=== PATIENT | female | born 1930 | race Caucasian/White ===

== ENCOUNTER 2017-07-19 14:02 | Outpatient (CLI) | payer MEDICARE, BC ==
[2017-07-19 15:15] LABS: Hemoglobin 10.9 g/dL (12.0-16.0); Mean Corpuscular Hemoglobin 30.8 pg (27.0-31.0); Mean Corpuscular Volume 93.3 fl (81.0-99.0); Mean Platelet Volume 8.9 fL (7.4-10.4); Platelet Count 228 thou/uL (130-400); RBC Distribution Width 13.9 % (11.5-14.5); Red Blood Cell (RBC) Count 3.53 mill/uL (4.20-5.40); White Blood Cell (WBC) Count 5.1 thou/uL (4.8-10.8)
[2017-07-19 15:37] LABS: Anion Gap 14 mmol/L (10-20); BUN (Urea Nitrogen) 27 mg/dL (9.8-20.1); Calc. Creatinine Clearance 0 mL/min (70-130); Calcium 9.6 mg/dL (7.8-10.44); Carbon Dioxide 24 mmol/L (23-31); Chloride 104 mmol/L (98-107); Estimated GFR-MDRD 47; Glucose 105 mg/dL (83-110); Potassium 4.5 mmol/L (3.5-5.1); Sodium 137 mmol/L (136-145)
== END 2017-07-19 14:03 | disposition home or self-care (01) ==
LOC: LABBT 14:02
PROVIDERS: ATTEND Orthopaedic Surgery
DX: Z01.812 Encounter for preprocedural laboratory examination (principal); M67.442 Ganglion, left hand
CPT/HCPCS: 80048; 85027

== ENCOUNTER 2017-07-23 05:53 | Day surgery (SDC) | payer MEDICARE, BC ==
[2017-07-19 14:20] VITALS: BMI 22.6
[2017-07-23] MEDS ORDERED: Lidocaine 1% w/Epinephrine 1:200K 30 ML VIAL ONE (06:39)
[2017-07-23] MEDS ORDERED: Clindamycin/D5W 600 mg/50 ml Premix Bag ONE (06:41)
[2017-07-23] MEDS ORDERED: Ondansetron HCl/PF 4 MG/2 ML Vial ONE ×2 (09:29→14:03)
[2017-07-23] MEDS ORDERED: ePHEDrine/0.9% NaCl/PF SYRINGE 50 mg/10 ml ONE ×2 (09:29→14:03)
[2017-07-23] MEDS ORDERED: Diprivan 20 ML ONE (09:29)
--- NOTE | 2017-07-23 12:23 | OP ---
PREOPERATIVE DIAGNOSIS: Ganglion cyst, left wrist. POSTOPERATIVE DIAGNOSIS: Ganglion cyst, left wrist. SURGEON: Bon Amador M.D. ANESTHESIA: General. BLOOD LOSS: About 25 mL. SPECIMENS: None. DRAINS: None. COMPLICATIONS: None. PROCEDURE IN DETAIL: The patient was taken to the operative suite where general anesthesia was induc ed. The left wrist was anesthetized with lidocaine with epinephrine as well. I opened up the old sc ar and extended proximally and distally to get a healthy tissue. I did a careful tedious dissection of the ganglion cyst. I tracked down to the joint and excised it from the joint and bovied the bed o f the donor site of the ganglion cyst to try and prevent recurrence. Tourniquet released. Hemostasi s was obtained. Irrigation performed. Skin was closed with 4-0 Vicryl and 3-0 Prolene and sterile d ressings applied.
[2017-07-23] MEDS ORDERED: Lidocaine 1% PF 5 ML VIAL ONE (14:03)
[2017-07-23] MEDS ORDERED: Propofol 200 MG/20 ML VIAL ONE (14:03)
--- NOTE | 2017-07-25 09:23 | EKG ---
Test Reason : PREOP Blood Pressure : / mmHG Vent. Rate : 064 BPM Atrial Rate : 064 BPM P-R Int : 162 ms QRS Dur : 146 ms QT Int : 474 ms P-R-T Axes : 057 -27 158 degrees QTc Int : 489 ms Normal sinus rhythm Possible Left atrial enlargement Left bundle branch block Abnormal ECG When compared with ECG of 17-JUN-2016 13:37, No significant change was found Confirmed by DIANELYS PAREDES ([id number]) on 07/25/2017 9:22:36 AM Referred By: DESTINY Confirmed By:DIANELYS PAREDES
== END 2017-07-23 09:58 | disposition home or self-care (01) ==
LOC: SDC 05:53
PROVIDERS: ATTEND Orthopaedic Surgery
PROC: 0LB60ZZ Excision of Left Lower Arm and Wrist Tendon, Open Approach (ICD-10-PCS; principal; 2017-07-23)
DX: M67.432 Ganglion, left wrist (principal); I10 Essential (primary) hypertension; E78.00 Pure hypercholesterolemia, unspecified; Z79.02 Long term (current) use of antithrombotics/antiplatelets; Z79.82 Long term (current) use of aspirin; Z79.52 Long term (current) use of systemic steroids; Z79.899 Other long term (current) drug therapy; Z88.5 Allergy status to narcotic agent; Z88.0 Allergy status to penicillin; Z95.1 Presence of aortocoronary bypass graft; Z90.710 Acquired absence of both cervix and uterus; Z98.890 Other specified postprocedural states; Z87.891 Personal history of nicotine dependence
CPT/HCPCS: 93005; 93010; J2001; J2405; J2704; J3490

== ENCOUNTER 2017-08-09 10:07 | Outpatient (CLI) | payer MEDICARE, BC ==
[2017-08-09 11:17] LABS: Hemoglobin 10.5 g/dL (12.0-16.0); Mean Corpuscular HGB CONC 32.4 g/dL (32.0-36.0); Mean Corpuscular Hemoglobin 31.1 pg (27.0-31.0); Mean Corpuscular Volume 95.9 fl (81.0-99.0); Mean Platelet Volume 8.6 fL (7.4-10.4); Platelet Count 216 thou/uL (130-400); RBC Distribution Width 13.8 % (11.5-14.5); Red Blood Cell (RBC) Count 3.38 mill/uL (4.20-5.40); White Blood Cell (WBC) Count 5.5 thou/uL (4.8-10.8)
[2017-08-09 11:41] LABS: Anion Gap 10 mmol/L (10-20); BUN (Urea Nitrogen) 31 mg/dL (9.8-20.1); Calc. Creatinine Clearance 0 mL/min (70-130); Calcium 9.8 mg/dL (7.8-10.44); Carbon Dioxide 28 mmol/L (23-31); Chloride 106 mmol/L (98-107); Estimated GFR-MDRD 49; Glucose 93 mg/dL (83-110); Potassium 4.3 mmol/L (3.5-5.1); Sodium 140 mmol/L (136-145)
== END 2017-08-09 10:08 | disposition home or self-care (01) ==
LOC: LABBT 10:07
PROVIDERS: ATTEND Surgery
DX: Z01.818 Encounter for other preprocedural examination (principal); I25.810 Atherosclerosis of coronary artery bypass graft(s) without angina pectoris; Z95.1 Presence of aortocoronary bypass graft
CPT/HCPCS: 80048; 85027

== ENCOUNTER 2017-08-10 07:08 | Day surgery (SDC) | payer MEDICARE, BC ==
[2017-08-09 10:48] VITALS: BMI 25.7
[2017-08-10] MEDS ORDERED: Lidocaine 1% (PF) 30 ML VIAL ONE (09:17)
[2017-08-10] MEDS ORDERED: Heparin 10,000 UNITS/1 ML VIAL ONE (10:43)
[2017-08-10] MEDS ORDERED: Nitroglycerin 100MG/250ML BOT 250 ML ONE (10:48)
--- NOTE | 2017-08-10 15:48 | DIS ---
HOSPITAL COURSE: She was seen as an outpatient for procedure and will be discharged on the same day. Her diagnosis was coronary artery disease. She had a cardiac catheterization last week which showed significant instent restenosis of the left anterior descending artery with a failed ARBOLEDA graft to left anterior descending artery. She was advised and continuation of severe stenosis of the left anterior descending artery. She was advised to undergo repeat angioplasty and stent placement to the left anterior descending artery. Given her age of [age] years old, it was high risk for redo surgery, her other bypass graft has remained patent. She was taken to cardiac catheterization lab today where she underwent the procedure, other diagnoses includes dyslipidemia, hypertension, history of tobacco abuse in the past, but stopped many years ago, history of chronic back pain, history of irritable bowel disease, hypertension, coronary artery bypass grafting in 2008 with bypasses to the left anterior descending artery, diagonal branch, obtuse marginal branch. She has a history of rheumatoid arthritis, TMJ. She has had a rotator cuff repair. She had partial hysterectomy and laminectomy. She has had bilateral cataract surgery. DISCHARGE MEDICATIONS: Same as her admission medications. These include Restasis ophthalmic drops, Xeljanz 5 mg b.i.d., Xanax 0.5 mg t.i.d. p.r.n., Lyrica 50 mg b.i.d., aspirin 81 mg daily, Plavix 75 mg daily, potassium ER 10 mEq daily, Norvasc 2.5 mg a half a tablet in the morning and 1 tablet in the evening, Nucynta 1 tablet every 8 hours as needed, Zetia 1 tablet daily 10 mg, furosemide 20 mg daily, rosuvastatin 10 mg daily, Coreg 12.5 mg 1 tablet b.i.d. , potassium 10 mEq 1 tablet daily when she takes the Lasix, and nitroglycerin 0.4 mg sublingual tablets p.r.n. Her followup will be with me in about 2-4 weeks in the office. She will continue her routine followups with Dr. Shawn Hitchcock, her primary doctor. She will follow up with him on a routine basis and I will see her back in the office in the next 1-2 months. PROCEDURES IN HOSPITAL: Included cardiac catheterization with only visualization of the left coronary system with angioplasty and stent placement to the left anterior descending artery which was successful. HOSPITAL COURSE: This is a very pleasant 87-year-old female underwent angioplasty and stent placement to the left anterior descending artery in the past. She also had bypass surgery and then recently had developed unstable angina. She was seen and underwent cardiac catheterization and was found to have severe stenosis of the left anterior descending artery with a failed ARBOLEDA to the left anterior descending artery. Today, she underwent angioplasty and stent placement to the left anterior descending artery which was heavily calcified, but we were able to pass the stent. She was implanted with a 2.5 x 38 mm drug-coated stent in the proximal to almost the distal area, the entire midsection of the left anterior descending artery was stented up to 2.5 mm in diameter. The midsection was dilated up to 2.54 mm. There was no evidence of significant residual stenosis. The patient tolerated the procedure well. At the end of procedure, there was no evidence of dissection or limitation of flow. During the procedure, she was not given any conscious sedation. She remained stable throughout the procedure and if she remains stable, she will be discharged home later today. She was given nitroglycerin intracoronary during the procedure for dilatation of the left anterior descending artery. ABRAHAN
[2017-08-10] MEDS ORDERED: Iopamidol 370 76% 100 ML VIAL ONE (15:53)
[2017-08-10] MEDS ORDERED: Iopamidol 370 76% 50 ML VIAL FS ONE (15:53)
--- NOTE | 2017-08-11 07:27 | EKG ---
Test Reason : PREOP Blood Pressure : / mmHG Vent. Rate : 060 BPM Atrial Rate : 060 BPM P-R Int : 158 ms QRS Dur : 148 ms QT Int : 476 ms P-R-T Axes : 056 -27 168 degrees QTc Int : 476 ms Normal sinus rhythm Left bundle branch block Abnormal ECG When compared with ECG of 23-JUL-2017 07:07, No significant change was found Confirmed by DR. Elham PHAM ([id number]) on 08/11/2017 7:26:55 AM Referred By: ELI Confirmed By:DR. Elham PHAM
--- NOTE | 2017-08-11 07:33 | EKG ---
Test Reason : S/P STENT Blood Pressure : / mmHG Vent. Rate : 060 BPM Atrial Rate : 060 BPM P-R Int : 154 ms QRS Dur : 146 ms QT Int : 492 ms P-R-T Axes : 062 -35 182 degrees QTc Int : 492 ms Normal sinus rhythm Left axis deviation Left bundle branch block Abnormal ECG When compared with ECG of 10-AUG-2017 08:25, (Unconfirmed) No significant change was found Confirmed by DR. Elham PHAM ([id number]) on 08/11/2017 7:32:48 AM Referred By: ELI Confirmed By:DR. Elham PHAM
== END 2017-08-10 20:15 | disposition home or self-care (01) ==
LOC: CCL 07:08
PROVIDERS: ATTEND Internal Medicine Cardiovascular Disease
PROC: 4A023N7 Measurement of Cardiac Sampling and Pressure, Left Heart, Percutaneous Approach (ICD-10-PCS; principal; 2017-08-10)
DX: I25.119 Atherosclerotic heart disease of native coronary artery with unspecified angina pectoris (principal); I10 Essential (primary) hypertension; E78.5 Hyperlipidemia, unspecified; F17.210 Nicotine dependence, cigarettes, uncomplicated; Z88.5 Allergy status to narcotic agent; Z88.0 Allergy status to penicillin; Z88.8 Allergy status to other drugs, medicaments and biological substances; Z95.1 Presence of aortocoronary bypass graft; Z82.49 Family history of ischemic heart disease and other diseases of the circulatory system
CPT/HCPCS: 85347 ×3; 93005 ×2; 93454; C1769 ×3; C1874; C1887; C9600; 92928; 93010; J1644; J2001

== ENCOUNTER 2018-02-07 09:01 | Outpatient (CLI) | payer MEDICARE, BC ==
--- NOTE | 2018-02-07 12:14 | MRI ---
MRI OF THE CERVICAL SPINE WITHOUT CONTRAST: INDICATION: History of cervical radiculopathy. COMPARISON: MRI cervical spine from [facility] dated 02/20/13. No additional comparisons are available. FINDINGS: There is a large mass-like prominence surrounding the anterior aspect of the C1-C2 articulation as we ll as the occiput C1 articulation with periarticular erosions involving the odontoid base as well as both C1 articular facets. This is predominantly low T2 signal and intermediate to low on T1 signal. The prominence is causing some mass effect on the anterior aspect of the spinal cord at C1 without d efinite cord signal abnormality. The mass lesion has progressed in size from the prior examination. At C2-C3, there is no appreciable central canal or neural foraminal narrowing. There is moderate to severe left and mild right facet joint degenerative change. At C3-4, there is a broad-based disk-osteophyte complex and facet joint degenerative change inducing moderate bilateral neural foraminal narrowing. At C4-5, there is a broad-based disk-osteophyte complex inducing mild bilateral neural foraminal narr owing and mild central canal narrowing. At C5-6, there is a broad-based disk-osteophyte complex and facet joint degenerative change inducing moderate to severe left and mild right neural foraminal narrowing. At C6-7, there is no appreciable central canal or neural foraminal narrowing. There is mild facet [place] int degenerative change. At C7-T1, there is no appreciable central canal or neural foraminal narrowing. IMPRESSION: 1. Prominent mass-like signal intensity seen surrounding the C1-C2 articulation extending up to the occiput C1 articulation with periarticular erosions involving the dens as well as the C1 articular fa cets. This mass-like prominence is causing mass effect on the ventral aspect of the spinal cord at C 1-C2 without definite cord signal abnormality. This lesion has become more prominent than on prior e xamination. Differential considerations for this lesion include panus formation from rheumatoid arth ritis or soft tissue prominence from calcium pyrophosphate dihydrate deposition disease. A CT examin ation of the cervical spine may be helpful to evaluate for calcifications within the mass-like promin ence which would suggest calcium pyrophosphate dihydrate deposition disease. 2. Moderate to severe spondylosis cervical spine with multilevel neural foraminal narrowing as detai led above. CODE T POS: [facility]
== END 2018-02-07 09:02 | disposition home or self-care (01) ==
LOC: MRI 09:01
DX: M47.22 Other spondylosis with radiculopathy, cervical region (principal); M99.81 Other biomechanical lesions of cervical region
CPT/HCPCS: 72141

== ENCOUNTER 2018-08-02 10:52 | Outpatient (CLI) | payer MEDICARE, BC ==
--- NOTE | 2018-08-02 12:39 | RAD ---
CHEST TWO VIEWS: History: Dyspnea. Comparison: 11-05-16 FINDINGS: Cardiac silhouette is upper limits of normal. Pulmonary vasculature unremarkable. Mediastinum is midl ine with aortic calcification and post-operative changes. No confluent airspace consolidation, pneumo thorax, or pleural fluid. There are degenerative changes of the thoracic spine and each shoulder. IMPRESSION: 1. Atherosclerosis. 2. Chronic type findings are stable. No active cardiopulmonary abnormalities are demonstrated. POS: [facility]
== END 2018-08-02 10:53 | disposition home or self-care (01) ==
LOC: RAD 10:52
PROVIDERS: ATTEND Nurse Practitioner
DX: R06.02 Shortness of breath (principal); I70.0 Atherosclerosis of aorta
CPT/HCPCS: 71046

== ENCOUNTER 2018-08-15 10:32 | Outpatient (CLI) | payer MEDICARE, BC ==
--- NOTE | 2018-08-15 13:15 | MRI ---
MRI CERVICAL SPINE: Date: 08/15/18 PROVIDED CLINICAL HISTORY: Cervical radiculopathy. FINDINGS: Comparison is made with the examination dated 02/07/18. Cervical alignment appears unchanged. Vertebral body heights appear maintained. Prominent disc space height loss and end plate degenerative change are again seen at C2-3, C3-4, C4-5, C5-6, and C6-7. The somewhat mass-like area of signal alteration present at the posterior aspect of the dens extendin g posterior to the clivus is redemonstrated. There is mild interval increase in this signal abnormali ty, measuring about 3.4 cm in craniocaudal dimension and 1.5 cm in AP dimension (as compared to 3.2 c m in craniocaudal dimension x 1.4 cm in AP dimension on the prior examination). This again demonstrat es mass effect upon the cervicomedullary junction and proximal cervical spinal cord. There is no defi nite associated cord signal abnormality. No additional focal concerning regional osseous signal alter ation is evident. There is no definite linear signal alteration to suggest fracture. At C2-3, bilateral facet arthritis and a broad based disc osteophyte complex are seen. There is bilat eral foraminal narrowing. There is no significant central canal stenosis apparent. At C3-4, there is a broad based disc osteophyte complex, bilateral uncinate process hypertrophy, and bilateral facet arthritis, producing stable degrees of bilateral foraminal and central canal stenosis . At C4-5, broad based disc osteophyte complex and uncinate process hypertrophy are noted, producing st able central canal and foraminal narrowing. At C5-6, broad based disc osteophyte complex and bilateral uncinate process hypertrophy produce stabl e degrees of central canal and foraminal narrowing. At C6-7, there is a broad based disc osteophyte complex with stable central canal and foraminal narro wing. At C7-T1, there is broad based disc osteophyte complex with stable bilateral foraminal narrowing. The visualized posterior fossa appears stable, as do the visualized prevertebral soft tissues. Degene rative changes are seen involving the visualized thoracic spine. IMPRESSION: 1. Mass-like signal alteration involving the posterior aspect of the dense and producing mass effect upon the cervicomedullary junction and proximal cervical spinal cord is redemonstrated, appearing sl ightly increased in size with respect to the prior examination. Differential considerations are predo minantly that related to pannus formation on the basis of rheumatoid arthritis. 2. Prominent multilevel cervical degenerative change, without significant interval change. POS: [facility]
== END 2018-08-15 10:33 | disposition home or self-care (01) ==
LOC: BICMRI 10:32
DX: M47.22 Other spondylosis with radiculopathy, cervical region (principal); R93.7 Abnormal findings on diagnostic imaging of other parts of musculoskeletal system
CPT/HCPCS: 72141

== ENCOUNTER 2018-09-19 11:43 | Inpatient (IN) | payer MEDICARE, BC ==
[2018-09-19 12:11] LABS: #Basophils 0.1 thou/uL (0.0-0.2); #Eosinphils 0.1 thou/uL (0.0-0.7); #Lymphocytes 1.2 thou/uL (1.20-3.40); #Monocytes 0.5 thou/uL (0.11-0.59); #Neutrophils 2.1 thou/uL (1.40-6.50); %Basophils 2.1 % (0.0-1.0); %Eosinophils 3.2 % (0.0-10.0); %Lymphocytes 30.1 % (21.0-51.0); %Monocytes 12.1 % (0.0-10.0); %Neutrophils 52.5 % (42.0-75.0); Hemoglobin 9.5 g/dL (12.0-16.0); Mean Corpuscular Hemoglobin 25.5 pg (27.0-31.0); Mean Corpuscular Volume 82.3 fL (78.0-98.0); Mean Platelet Volume 8.1 fL (7.4-10.4); Platelet Count 269 thou/uL (130-400); RBC Distribution Width 14.4 % (11.5-14.5); Red Blood Cell (RBC) Count 3.73 mill/uL (4.20-5.40); White Blood Cell (WBC) Count 4.1 thou/uL (4.8-10.8)
--- NOTE | 2018-09-19 12:18 | CT ---
BRAIN CT WITHOUT IV CONTRAST: HISTORY: Dizziness and syncope. FINDINGS: There is some atrophy and chronic white matter ischemic change. No focal mass or midline shift. Sta ble appearance to prior MRI, 12/11/2016. IMPRESSION: Atrophy and chronic white matter ischemic change. No mass or bleed or other acute process. POS: [facility]
[2018-09-19 12:43] LABS: ALT (SGPT) 10 U/L (8-55); AST (SGOT) 20 U/L (5-34); Albumin 4.1 g/dL (3.4-4.8); Alkaline Phosphatase 62 U/L (40-150); Anion Gap 14 mmol/L (10-20); BUN (Urea Nitrogen) 18 mg/dL (9.8-20.1); Bilirubin, Total 0.3 mg/dL (0.2-1.2); CK (CPK) 110 U/L (29-168); Calc. Creatinine Clearance 0 mL/min (70-130); Calcium 9.4 mg/dL (7.8-10.44); Carbon Dioxide 25 mmol/L (23-31); Chloride 103 mmol/L (98-107); Estimated GFR-MDRD 47; Globulin 2.9 g/dL (2.4-3.5); Glucose 102 mg/dL (83-110); Potassium 3.8 mmol/L (3.5-5.1); Sodium 138 mmol/L (136-145)
--- NOTE | 2018-09-19 14:00 | CT ---
FCTA Angio Chest W WO Con History: [Syncope. Dizziness and shortness of breath] Comparison: None. Findings: CT angiogram of the chest performed after the intravenous administration of contrast. 3-D r endering provided. No proximal segmental pulmonary arterial filling defect. Moderate calcifications o f the aorta without aneurysmal dilatation. No pericardial effusion. Heart size is enlarged. There is left atrial enlargement. There are a few centrilobular nodules in the right middle lobe. There is a focal area of alveolitis i n the right lower lobe axial image 71 contained within the secondary pulmonary lobule. There is scarring left lung base with some round atelectasis. There is a nodule in the left lung base measuring 4 mm. Mild interstitial thickening in the periphery of the lungs. No acute osseous abnormality. No suspicious osteolytic or osteoblastic lesions. No thoracic spine com pression fracture. There is a posterior discussed by complex containing gas at T11/T12 causing spinal canal narrowing. No displaced rib fracture. Impression: 1. No proximal segmental pulmonary arterial filling defect. 2. Mild pulmonary venous congestion. 3. Centrilobular nodules in the right middle lobe as well as opacity in the right lung base containin g within the secondary pulmonary lobule. This may be sequela of alveolitis. Aspiration is also possib ility and less likely malignant process. Follow-up CT of the chest in 6 months is recommended. 4. Posterior disc osteophyte complex containing gas at T11/T12 causing neural foraminal narrowing on the left and spinal canal narrowing. MRI may be beneficial in this patient clinically warranted.
[2018-09-19] MEDS ORDERED: ISOVUE-370 76%-LOCM 1 ML ONE (14:48)
[2018-09-19 15:22] LABS: Bilirubin Negative (Negative); Blood, Urine Negative (Negative); Clarity CLEAR (Clear); Glucose, Urine (Dipstick) Negative (Negative); Leukocyte Negative (Negative); Nitrite Negative (Negative); Protein, Urine (Dipstick) Negative (Neg-Trace); Specific Gravity, Urine 1.033 (1.002-1.036); pH, Urine 7.5 (5.0-9.0)
[2018-09-19] MEDS ORDERED: Ondansetron PF 4 MG/2 ML Vial IVP PRN (16:44)
[2018-09-19 16:59] LABS: Troponin I 0.013 ng/mL (< 0.028)
[2018-09-19] MEDS ORDERED: Furosemide 20 MG/2 ML VIAL SLOW IVP SCH (17:30)
[2018-09-19 18:53] VITALS: BMI 20.8
[2018-09-19 19:49] LABS: Troponin I 0.019 ng/mL (< 0.028)
[2018-09-19] MEDS: Sacubitril 24.5 MG/Valsartan 25.5 MG TABLET PO SCH ×2 (20:45→20:47)
[2018-09-19] MEDS: Rosuvastatin 10 MG TAB PO SCH (20:45)
[2018-09-19] MEDS: Carvedilol 6.25 MG TAB PO SCH (20:45)
[2018-09-19] MEDS: ALPRAZolam 0.25 MG TAB PO PRN (23:28)
[2018-09-19] MEDS: traMADol HCl 50 MG TAB PO PRN (23:28)
--- NOTE | 2018-09-19 23:40 | HP ---
CHIEF COMPLAINT: Shortness of breath and near syncope. HISTORY OF PRESENT ILLNESS: The patient is a very pleasant 88-year-old female with past medical history significant for coronary artery disease, status post CABG, status post stents with last intervention to the middle LAD in 2018, severe MR, chronic systolic heart failure, and rheumatoid arthritis, who has been followed closely by Dr. Harp in the past. The patient has recently undergone extensive workup in [place] with Dr. Gabriel Preciado, for evaluation of her mitral valve. Apparently, the patient does have severe mitral regurgitation, and has undergone recent MRI of the heart per the patient and her , for consideration of possible E-Clip versus valve replacement. She is also being considered for ICD as well. This information is taken per history of the patient and her who is retired physician, no records are currently available for review. She has also undergone recent left heart catheterization last month at outpatient facility [facility] with Dr. Harp. She has recently been taken off her lisinopril, and placed on Entresto. The patient was in her usual state of health up until this morning, when she was sitting at the breakfast table and began experiencing acute onset of shortness of breath. The patient states that she has never had any chest pain prior to intervention or stents, but has had some shortness of breath, and so decided to take a sublingual nitroglycerin to see if it would relieve her symptoms. It did not, and so she took a 2nd sublingual nitroglycerin, and per , became very weak and began to slump in the chair. He got her safely to the floor without any fall or injury. The patient denies marta syncope. Dr. Arroyo, her did take her blood pressure and noted it was to be 40s systolic, and so called EMS for further evaluation. Workup on arrival included EKG which showed left bundle- branch block, which is a known finding for this patient. CTA of the chest was negative for PE. Upon my interview, the patient patient's blood pressure has recovered, is currently 150/69, pulse is 60, O2 saturation 95% on room air. She is resting comfortably and eating a sandwich. She states that her shortness of breath at this point is resolved. As mentioned, she denies any chest pain, nausea, vomiting, or diaphoresis. PAST MEDICAL HISTORY: 1. Coronary artery disease, status post CABG in 2009, status post stent of the LAD in 2018. 2. Severe MR. 3. Chronic systolic congestive heart failure. 4. Rheumatoid arthritis. 5. Peripheral neuropathy. 6. Severe MR, currently undergoing outpatient workup for intervention. PAST SURGICAL HISTORY: 1. Laminectomy of L3 in the distant past. 2. Carpal tunnel repair. 3. Hysterectomy. 4. Bilateral rotator cuff repair. 5. Coronary artery bypass grafting in 2009, PCI/stenting prior to her surgery and most recently in 2018. ALLERGIES: CODEINE, MEPERIDINE, MORPHINE, PENICILLIN. REVIEW OF SYSTEMS: 12-point review of systems performed, is negative except that stated above. SOCIAL HISTORY: The patient has a remote history of tobacco abuse. Denies any alcohol use. She lives with her . She is a full code. FAMILY HISTORY: Noncontributory. CURRENT HOME MEDICATIONS: This is a non-reconciled list as the patient does not know the doses of her medications. 1. Carvedilol. 2. Entresto one tablet p.o. b.i.d. 3. Aspirin. 4. Plavix. 5. Humira. 6. Tegretol. 7. Crestor. 8. Xanax 0.5 mg p.r.n. PHYSICAL EXAMINATION: VITAL SIGNS: Blood pressure 150/69, pulse in the 60s, sinus; O2 saturation 95% on room air. GENERAL: This is a thin elderly female, resting comfortably in no acute distress. HEENT: Head is atraumatic, normocephalic. Mucous membranes are moist. NECK: No appreciable JVD. No lymphadenopathy. No carotid bruit. CV: S1 and S2. Regular rate and rhythm. Systolic murmur heard best at the apex, grade 2/6. LUNGS: Regular respiratory rate and pattern. Clear to auscultation bilaterally. No appreciable crackles at this time. No rhonchi or wheezes. ABDOMEN: Soft, positive bowel sounds, nontender. SKIN: No rashes. No discoloration. EXTREMITIES: No edema noted. NEUROLOGIC: Cranial nerves 2 through 12 are intact. The patient is otherwise nonfocal. DIAGNOSTIC STUDIES: LABORATORY RESULTS: White blood cell count 4.1, RBC 3.73, hemoglobin 9.5, hematocrit 30.7, and platelets 269. Sodium 138, potassium 3.8, chloride 103, anion gap 14, BUN 18, creatinine 1.1. AST 20, ALT 10, alkaline phosphatase 62, creatine kinase 110. Troponin 0.010. UA is negative. ASSESSMENT: 1. Shortness of breath, multifactorial in the setting of severe coronary artery disease and severe valvular disease, ? secondary to acute systolic CHF exacerbation, CTA negative for PE 2. Near syncope secondary to hypotension from sublingual nitroglycerin, resolved. 3. Severe mitral regurgitation. 4. Chronic systolic heart failure, likely combined valvular and ischemic, with possible acute exacerbation. 5. Coronary artery disease, status post CABG, status post stent, last intervention in July 2017 with a stent to the mid LAD with Dr. Harp, last left heart catheterization was performed last month. 6. Rheumatoid arthritis. 7. Hypertension. 8. Hyperlipidemia. 9. Chronic anemia. 10. Left bundle branch block. PLAN: Given the patient's complex cardiac history, we will consult Dr. Harp for further recommendations regarding the patient's symptoms and possible optimization of her heart failure medications. I do not have the patient's recorded EF at this time, but given pulmonary vascular congestion, we will go ahead and gently diurese the patient as well as obtain a BNP. Continue serial cardiac enzymes to rule out ACS. Care discussed with Dr. Ahmadi who agrees with the above plan. Further recommendations based on hospital course. Job ID: [id number] [facility] CENTERKuldeep
[2018-09-20 05:15] LABS: #Basophils 0.1 thou/uL (0.0-0.2); #Eosinphils 0.2 thou/uL (0.0-0.7); #Lymphocytes 1.5 thou/uL (1.20-3.40); #Monocytes 0.5 thou/uL (0.11-0.59); #Neutrophils 3.3 thou/uL (1.40-6.50); %Basophils 0.9 % (0.0-1.0); %Eosinophils 3.4 % (0.0-10.0); %Lymphocytes 27.2 % (21.0-51.0); %Monocytes 8.4 % (0.0-10.0); %Neutrophils 60.1 % (42.0-75.0); Hemoglobin 8.7 g/dL (12.0-16.0); Mean Corpuscular HGB CONC 31.7 g/dL (32.0-36.0); Mean Corpuscular Hemoglobin 25.7 pg (27.0-31.0); Mean Corpuscular Volume 81.1 fL (78.0-98.0); Mean Platelet Volume 8.1 fL (7.4-10.4); Platelet Count 250 thou/uL (130-400); RBC Distribution Width 14.4 % (11.5-14.5); Red Blood Cell (RBC) Count 3.38 mill/uL (4.20-5.40); White Blood Cell (WBC) Count 5.5 thou/uL (4.8-10.8)
[2018-09-20 05:25] LABS: Anion Gap 13 mmol/L (10-20); BUN (Urea Nitrogen) 19 mg/dL (9.8-20.1); Calc. Creatinine Clearance 36 mL/min (70-130); Calcium 9.1 mg/dL (7.8-10.44); Carbon Dioxide 26 mmol/L (23-31); Chloride 103 mmol/L (98-107); Estimated GFR-MDRD 59; Glucose 92 mg/dL (83-110); Potassium 3.8 mmol/L (3.5-5.1); Sodium 138 mmol/L (136-145)
[2018-09-20] MEDS: Sacubitril 24.5 MG/Valsartan 25.5 MG TABLET PO SCH ×3 (07:38→20:24)
[2018-09-20] MEDS: Carvedilol 6.25 MG TAB PO SCH ×2 (08:34→20:25)
[2018-09-20] MEDS: Aspirin Chewable 81 MG TAB PO SCH (08:34)
[2018-09-20] MEDS: Clopidogrel Bisulfate 75 MG TAB PO SCH (08:35)
[2018-09-20] MEDS: traMADol HCl 50 MG TAB PO PRN ×2 (09:46→20:25)
[2018-09-20] MEDS ORDERED: Sacubitril 24.5 MG/Valsartan 25.5 MG TABLET PO SCH (13:30)
--- NOTE | 2018-09-20 14:30 | RAD ---
EXAM: Chest one view: HISTORY: Shortness of breath COMPARISON: 08/02/2018 FINDINGS: Postop midline sternotomy. Mild biapical pleural thickening. Monitor leads overlie the chest. Heart size: Within normal limits. The lungs: Clear of acute process. No evidence for pneumonia, pleural effusion, acute edema, or pneumothorax, or other significant acute process. IMPRESSION: No significant acute intrathoracic disease. Stable from prior study.
--- NOTE | 2018-09-20 16:49 | PRG ---
DATE OF SERVICE: 09/20/2018 SUBJECTIVE: Mrs. Quyen Arroyo is a pleasant 88-year-old female with past medical history significant for coronary artery disease, status post CABG, status post stents, most recently to the mid LAD in 2018, severe MR, chronic systolic heart failure, who presented to the hospital with complaints of shortness of breath and near syncope after taking 2 doses of sublingual nitroglycerin. The patient was given a small dose of IV Lasix yesterday, and the patient apparently diuresed well. She has had no further shortness of breath. She denies any chest pain. She denies any nausea or vomiting. Her appetite is good. She did refuse to take her Entresto last night and this morning, concerned that her shortness of breath is secondary to that particular heart failure medication, and wanted to discuss that with the supply chain manager. Otherwise, no complaints. OBJECTIVE: VITAL SIGNS: Blood pressure 127/60, pulse is 66, O2 saturation is 95% on room air, temperature is 98.5. GENERAL: This is a thin elderly female, resting comfortably in bed, in no acute distress. HEENT: Head atraumatic and normocephalic. Extraocular eye movements intact, mucous membranes are moist. NECK: Trachea is midline. No JVD. No carotid bruits. CV: S1 and S2. Regular rate and rhythm. Soft systolic murmur, heard best at apex. LUNGS: Regular respiratory rate and pattern, overall clear to auscultation. ABDOMEN: Positive bowel sounds. Soft, nontender. EXTREMITIES: No edema, +2 DP pulses bilaterally. Extremities are warm and well perfused. SKIN: No rashes or discolorations. Warm and dry. LABORATORY DATA: Hemoglobin 8.7, hematocrit 27.4, platelet count is 250. Sodium 138, potassium 3.8, chloride 103, carbon dioxide 26, anion gap 13, BUN 19, creatinine 0.9, GFR 59, glucose 92. BNP was 627. Troponin 0.010 and 0.019 respectively. ASSESSMENT: 1. Shortness of breath, resolved, CTA negative for pulmonary embolism, questionably secondary to acute heart failure exacerbation versus anginal equivalent, much improved/resolved this morning. 2. Near syncope secondary to hypertension from sublingual nitroglycerin, resolved. 3. Severe mitral valve regurgitation. 4. Chronic systolic heart failure, likely combined valvular and ischemic, followed by Dr. Harp. 5. Coronary artery disease, status post CABG, status post stents with the last intervention on July 2017. Recent left heart catheterization performed last month in preparation for possible mitral valve eClip versus valve replacement. 6. Rheumatoid arthritis. 7. Hypertension. 8. Hyperlipidemia. 9. Chronic anemia. 10. Left bundle-branch block. PLAN: The patient has been seen in consultation with Dr. Curiel. The patient's Entresto will be reinstated. Continue carvedilol. The patient is currently undergoing workup in [place] for a possible resynchronization device and possible valve replacement versus possible eClip. The patient will be monitored overnight for further symptoms per Dr. Curiel. Care discussed with both the patient and with Dr. Arroyo, and all questions answered. Chest x-ray is pending. Job ID: [id number]
--- NOTE | 2018-09-20 17:51 | CON ---
DATE OF CONSULTATION: HISTORY OF PRESENT ILLNESS: This patient is a pleasant 88-year-old woman, who presents for evaluation of dyspnea and chest discomfort. The patient has a previous history of coronary artery bypass graft surgery in 2008. She had a ARBOLEDA placed to the LAD, saphenous vein graft to a diagonal and PDA. The patient underwent a repeat catheterization in 2014 with occlusion of the ARBOLEDA. The patient subsequently underwent PTCA and stent placed in the LAD in July of 2017. The patient was in usual state of health when she became acutely dyspneic. She also had some chest discomfort and became short of breath. The patient took 2 nitroglycerin tablets and nearly lost consciousness. The patient had a recent catheterization done few weeks ago, which revealed two patent stent grafts and a 50% stenosis in the LAD stent. The patient also has significant mitral regurgitation and decreased left ventricular systolic function. The patient was recently started on Entresto. She took several doses. By the third dose, the patient became acutely dyspneic and developed her symptoms. She was admitted for further evaluation. PAST MEDICAL HISTORY: 1. Coronary artery disease. 2. Hypertension. 3. Rheumatoid arthritis. 4. Dyslipidemia. 5. Irritable bowel syndrome. PAST SURGICAL HISTORY: Coronary artery bypass surgery, cataract surgery, laminectomy, hysterectomy, and rotator cuff surgery. SOCIAL HISTORY: Nonsmoker. FAMILY HISTORY: Positive family history of heart disease. ALLERGIES: SEE NURSING LIST. MEDICATIONS: See nursing list. PHYSICAL EXAMINATION: GENERAL: This is a well-developed woman, in no acute distress. VITAL SIGNS: Blood pressure 127/60. NECK: No jugular venous distention. LUNGS: Clear to auscultation. HEART: Regular rate and rhythm with a normal S1 and S2. ABDOMEN: Nondistended. EXTREMITIES: Show no edema. VASCULAR: Radial pulses are 2. LABORATORY DATA: Sodium 138, potassium 3.8, chloride 103, bicarbonate 26, BUN 19, and creatinine 0.9. Troponin 0.019. White blood cell count 5.5, hemoglobin 8.7 , hematocrit 27.4, and platelets were 250. Her BNP was 627. Her CT scan revealed her to have no evidence of a pulmonary embolus. IMPRESSION: 1. Dyspnea. 2. Chest discomfort. 3. History of coronary artery bypass graft surgery. 4. History of percutaneous transluminal coronary angioplasty and stent placed to left anterior descending. 5. Ischemic cardiomyopathy. 6. Mitral regurgitation. PLAN: This patient presented with acute onset of dyspnea probably secondary to congestive heart failure. The patient was diuresed with IV Lasix. I would recommend the patient restart on her Entresto. Further recommendations will follow. Job ID: [id number] [facility]
[2018-09-20] MEDS: Rosuvastatin 10 MG TAB PO SCH (20:24)
[2018-09-20] MEDS: ALPRAZolam 0.25 MG TAB PO PRN (20:29)
[2018-09-20] MEDS ORDERED: carBAMazepine 200 MG TAB PO SCH (21:00)
[2018-09-21 05:39] LABS: Anion Gap 12 mmol/L (10-20); BUN (Urea Nitrogen) 21 mg/dL (9.8-20.1); Calc. Creatinine Clearance 34 mL/min (70-130); Calcium 9.2 mg/dL (7.8-10.44); Carbon Dioxide 26 mmol/L (23-31); Chloride 104 mmol/L (98-107); Estimated GFR-MDRD 55; Glucose 96 mg/dL (83-110); Potassium 3.9 mmol/L (3.5-5.1); Sodium 138 mmol/L (136-145)
[2018-09-21 08:08] VITALS: BP 129/62; TEMP 97.5
[2018-09-21] MEDS: Carvedilol 6.25 MG TAB PO SCH (08:12)
[2018-09-21] MEDS: Aspirin Chewable 81 MG TAB PO SCH (08:12)
[2018-09-21] MEDS: Clopidogrel Bisulfate 75 MG TAB PO SCH (08:12)
[2018-09-21] MEDS: Sacubitril 24.5 MG/Valsartan 25.5 MG TABLET PO SCH (08:12)
[2018-09-21] MEDS: traMADol HCl 50 MG TAB PO PRN (08:13)
--- NOTE | 2018-09-21 16:25 | PDOC.CTH ---
Cardiology Progress Note - Subjective Pt. seen and eval. by me. No complaints this AM. I spoke to Dr. Preciado in [place] who has eval. her for possible MV repair or replacement due to the severe MR. We are in agreement to transfer her to [facility]. - Objective Vital Signs Temp Pulse Resp BP Pulse Ox 09/21/18 07:30 97.5 F L 84 16 129/62 96 Weight 114 lb 09/20/18 09/21/18 09/22/18 06:59 06:59 06:59 Intake Total 625 1425 Balance 625 1425 - Physical Examination General/Neuro: alert & oriented x3 Neck: carotid US brisk Lungs: CTA Heart: RRR Abdomen: NT/ND, soft - Labs Result Diagrams: 09/20/18 04:44 09/21/18 04:44 Troponin/CKMB Troponin I 0.019 ng/mL (< 0.028) 09/19/18 19:18 - Assessment/Plan 1. Severe MR. Episode yesterday probably was early acute pulm. edema. with severe SOB. The hypotension that occurred was likely due to the 2 NTG that she received. After the BP stabalized and IV lasix was given, the symptoms resolved. She will go to [place] today and be admitted to [facility] for possible MV repair or replacement. 2. CMY. EF 35-40%. C.O decreased due to severe MR. 3. CAD: stable. MRI indicated all viable myocardium. 4. LBBB: may eventually need an AICD or possible Bi_V pacemaker.
--- NOTE | 2018-09-22 06:58 | DIS ---
DATE OF ADMISSION: 09/19/2018 DATE OF DISCHARGE: 09/21/2018 ALLERGIES: CODEINE, MEPERIDINE, MORPHINE, AND PENICILLINS. CHIEF COMPLAINT: Shortness of breath and near syncope. FINAL DIAGNOSES: 1. Shortness of breath, resolved, CTA negative for pulmonary embolism, likely secondary to acute heart failure exacerbation in the setting of severe mitral regurgitation and chronic systolic congestive heart failure. 2. Near syncope secondary to hypotension from sublingual nitroglycerin, resolved. 3. Severe mitral regurgitation, being evaluated currently by Dr. Preciado in [place] for possible E Clip versus transcatheter mitral valve replacement. 4. Chronic systolic congestive heart failure, likely thought to be valvular at this time, followed closely by Dr. Harp. 5. Coronary artery disease, status post coronary artery bypass grafting, status post stents with last intervention in July of 2017, with recent left heart catheterization performed last month by Dr. Harp in preparation for mitral valve repair. 6. Rheumatoid arthritis, stable. 7. Hypertension. 8. Hyperlipidemia. 9. Chronic anemia. 10. Left bundle-branch block. PROCEDURES PERFORMED: None. LABORATORY RESULTS: White blood cell count 5.5, hemoglobin 8.7, hematocrit 27.4. Sodium 138, potassium 3.9, chloride 104, anion gap 12, BUN 21, creatinine 0.96, GFR 55. Liver function enzymes within normal limits. Troponin was negative x2. BNP elevated at 627. Urinalysis was negative. IMAGING RESULTS: Brain CT, atrophy and chronic white matter ischemic changes. No mass or bleed or other acute process. Chest and thorax CTA showed no proximal segmental pulmonary arterial filling defects, mild pulmonary vascular congestion, and centrilobular nodules in the right middle lobe as well as opacity in the right lung base containing within the 2nd pulmonary nodule. Chest x-ray performed on September 20, 2018, showed no significant acute intrathoracic disease. CONSULTATIONS: Dr. Curiel and Dr. Harp of Cardiology. VITAL SIGNS: Blood pressure 129/62, temperature 97.5, pulse 84, respirations 16, O2 saturation 96%. HOSPITAL COURSE: The patient is a very pleasant 88-year-old female with past medical history significant for coronary artery disease, status post CABG, status post stents with last intervention to the mid LAD in 2017, severe MR, currently undergoing workup for repair by Dr. Preciado in [place] at [facility], chronic systolic heart failure, rheumatoid arthritis, who presented to the ER with complaints of shortness of breath. The patient was sitting at the breakfast table with her when she began to feel very short of breath. She took one sublingual nitroglycerin without relief of her symptoms. When she took the 2nd sublingual nitroglycerin, the patient began to slumped in her chair. She denies any marta syncope. Her was able to get her to the floor, and when he took her blood pressure, it was noted to be 40 systolic. EMS was called and she was taken to the ER for further workup and evaluation. Imaging was performed as outlined above. By the time I saw the patient in the ER, her low blood pressure had resolved. Given mild pulmonary vascular congestion on CT as well as elevated BNP, she was diuresed with IV Lasix. She diuresed well over the night. Her presenting symptoms of shortness of breath were resolved. She was seen in consultation by Dr. Curiel and Dr. Harp. The patient had been reluctant to take her Entresto as she thought this might have caused her shortness of breath; however, Entresto was reinstated and the patient tolerated it well. Dr. Harp had a lengthy conversation with Dr. Preciado in [place], and ultimately the plan was decided for discharge today and admission at [facility] for possible mitral valve repair. PHYSICAL EXAMINATION: GENERAL: The patient is awake and alert, sitting up in bed, in no distress. HEENT: Atraumatic, normocephalic. Eye movements intact. NECK: Supple. No lymphadenopathy. No JVD. No carotid bruits. RESPIRATORY: Regular respiratory rate and pattern. Clear to auscultation bilaterally. CV: S1 and S2. Regular rate and rhythm. Soft systolic murmur grade 1/6. GI: Soft and nontender. Normal bowel sounds. PERIPHERAL VASCULAR: No lower extremity pitting edema. +2 DP pulses bilaterally. NEUROLOGIC: Cranial nerves II through XII intact. The patient is nonfocal. SKIN: Warm and dry. No rashes or discolorations. CONDITION AT DISCHARGE: Stable. DISCHARGE MEDICATIONS: 1. Alprazolam 0.25 mg tablet one tablet p.o. p.r.n. 2. Amlodipine 2.5 mg tablet daily. 3. Aspirin 81 mg daily. 4. Carbamazepine 100 mg p.o. at bedtime. 5. Carvedilol 12.5 mg tablet p.o. b.i.d. 6. Plavix 75 mg daily. 7. Furosemide 20 mg tablet one tablet p.o. p.r.n. 8. Meclizine 25 mg tablet p.o. p.r.n. 9. Nitroglycerin 0.5 mg sublingual, one tablet sublingual p.r.n. chest pain. 10. Protonix 40 mg tablet daily. 11. Potassium chloride 10 mEq daily. 12. Crestor 10 mg p.o. at bedtime. 13. Entresto 24/26 tablet one tablet p.o. b.i.d. 14. Tramadol 50 mg tablet p.o. q.4 p.r.n. DISCHARGE DISPOSITION: Discharged to private vehicle. PLAN: I had a lengthy discussion with Dr. Harp, the patient's primary assistant professor of art, who has been in touch with Dr. Preciado. The plan will be for discharge today. The patient and her will travel via private vehicle to [facility] for direct admission. At that time, Dr. Preciado will make final decision regarding mitral valve repair and possible BiV resynchronization device. The patient is discharged today in good condition. Job ID: [id number]
--- NOTE | 2018-09-24 09:50 | EKG ---
Test Reason : Blood Pressure : / mmHG Vent. Rate : 064 BPM Atrial Rate : 064 BPM P-R Int : 156 ms QRS Dur : 150 ms QT Int : 462 ms P-R-T Axes : 103 -30 164 degrees QTc Int : 476 ms Normal sinus rhythm Left axis deviation Left bundle branch block Abnormal ECG Left ventricular hypertrophy Confirmed by SRINI BACON, JANI Uribe ([id number]), publishing editor JARROD REILLY ([id number]) on 09/24/2018 9:50:10 AM Referred By: Confirmed By:JANI MILLIGAN MD
== END 2018-09-21 09:44 | disposition home or self-care (01) | DRG 293 ==
LOC: ERS 11:43 → OBSVTOIN 18:21 → 2SW 18:21
PROVIDERS: ADMIT Family Medicine; ATTEND Family Medicine
DX: I11.0 Hypertensive heart disease with heart failure (principal); I50.23 Acute on chronic systolic (congestive) heart failure; I25.10 Atherosclerotic heart disease of native coronary artery without angina pectoris; I34.0 Nonrheumatic mitral (valve) insufficiency; M06.9 Rheumatoid arthritis, unspecified; I44.7 Left bundle-branch block, unspecified; G62.9 Polyneuropathy, unspecified; I95.2 Hypotension due to drugs; T46.3X5A Adverse effect of coronary vasodilators, initial encounter; E78.5 Hyperlipidemia, unspecified; D53.9 Nutritional anemia, unspecified; I34.1 Nonrheumatic mitral (valve) prolapse; M19.90 Unspecified osteoarthritis, unspecified site; Z95.1 Presence of aortocoronary bypass graft; Z95.5 Presence of coronary angioplasty implant and graft; Z98.890 Other specified postprocedural states; Z88.0 Allergy status to penicillin; Z88.8 Allergy status to other drugs, medicaments and biological substances; Z87.891 Personal history of nicotine dependence; Z79.02 Long term (current) use of antithrombotics/antiplatelets; Z79.1 Long term (current) use of non-steroidal anti-inflammatories (NSAID)
CPT/HCPCS: 36415; 70450; 71045; 71275; 80048; 80053; 81003; 82550; 83880; 84484; 85025; 93005; J1940; Q9966

== ENCOUNTER 2021-04-25 10:05 | Inpatient (IN) | payer MEDICARE, BC ==
[2021-04-25] MEDS ORDERED: Iopamidol-370 76% 500 ML 1 ML ONE (10:12)
[2021-04-25] MEDS ORDERED: traMADol HCl 50 MG TAB ONE (10:31)
[2021-04-25] MEDS ORDERED: Ondansetron PF 4 MG/2 ML Vial ONE ×2 (10:31→17:50)
[2021-04-25 11:11] LABS: #Lymphocytes 0.5 thou/uL (1.20-3.40); #Monocytes 1.6 thou/uL (0.11-0.59); #Neutrophils 15.6 thou/uL (1.40-6.50); %Basophils 0.2 % (0.0-1.0); %Lymphocytes 2.7 % (21.0-51.0); %Monocytes 8.9 % (0.0-10.0); %Neutrophils 88.2 % (42.0-75.0); Hemoglobin 10.1 g/dL (12.0-16.0); Mean Corpuscular HGB CONC 32.8 g/dL (32.0-36.0); Mean Corpuscular Hemoglobin 29.1 pg (27.0-31.0); Mean Corpuscular Volume 88.8 fL (78.0-98.0); Mean Platelet Volume 7.7 fL (7.4-10.4); Platelet Count 259 thou/uL (130-400); RBC Distribution Width 12.8 % (11.5-14.5); Red Blood Cell (RBC) Count 3.48 mill/uL (4.20-5.40); White Blood Cell (WBC) Count 17.7 thou/uL (4.8-10.8)
[2021-04-25] MEDS ORDERED: Ketorolac Tromethamine 30 MG/ML VIAL ONE (11:25)
[2021-04-25 11:32] LABS: ALT (SGPT) 13 U/L (8-55); AST (SGOT) 23 U/L (5-34); Albumin 3.8 g/dL (3.4-4.8); Alkaline Phosphatase 52 U/L (40-110); Anion Gap 14 mmol/L (10-20); BUN (Urea Nitrogen) 25 mg/dL (9.8-20.1); Bilirubin, Total 0.5 mg/dL (0.2-1.2); Calc. Creatinine Clearance 0 mL/min (70-130); Calcium 9.6 mg/dL (7.8-10.44); Carbon Dioxide 23 mmol/L (23-31); Chloride 100 mmol/L (98-107); Glucose 98 mg/dL (83-110); Lipase 9 U/L (8-78); Potassium 4.4 mmol/L (3.5-5.1); Protein, Total 6.8 g/dL (5.8-8.1); Sodium 133 mmol/L (136-145)
[2021-04-25] MEDS ORDERED: Ondansetron PF 4 MG/2 ML Vial IVP PRN (17:45)
[2021-04-25] MEDS ORDERED: Morphine 4 MG/ML VIAL ONE (17:50)
[2021-04-25] MEDS ORDERED: cefTRIAXone\\ROCEPHIN 1 GM VIAL ONE (17:50)
[2021-04-25] MEDS ORDERED: traMADol HCl 50 MG TAB PO PRN (17:52)
[2021-04-25] MEDS ORDERED: Cyclobenzaprine 10 MG TAB PO SCH (18:00)
[2021-04-25 18:28] LABS: Bilirubin Negative (Negative); Blood, Urine Negative (Negative); Clarity Clear (Clear); Glucose, Urine (Dipstick) Normal (Negative); Ketone, Urine Trace mg/dL (Negative); Leukocyte Negative Leu/uL (Negative); Nitrite Negative (Negative); Protein, Urine (Dipstick) 10 mg/dL (Neg-Trace); Urobilinogen Normal mg/dL (Less than 2)
[2021-04-25] MEDS: Melatonin 3 MG TAB PO PRN (20:01)
[2021-04-25] MEDS: carBAMazepine 200 MG TAB PO SCH (20:01)
[2021-04-25] MEDS ORDERED: Famotidine 20 MG TAB PO SCH (21:00)
[2021-04-26 05:58] LABS: #Lymphocytes 0.6 thou/uL (1.20-3.40); #Monocytes 1.4 thou/uL (0.11-0.59); #Neutrophils 13.8 thou/uL (1.40-6.50); %Basophils 0.1 % (0.0-1.0); %Eosinophils 0.1 % (0.0-10.0); %Lymphocytes 3.9 % (21.0-51.0); %Monocytes 8.9 % (0.0-10.0); %Neutrophils 87.1 % (42.0-75.0); Mean Corpuscular HGB CONC 32.3 g/dL (32.0-36.0); Mean Corpuscular Hemoglobin 29.1 pg (27.0-31.0); Mean Platelet Volume 7.6 fL (7.4-10.4); Platelet Count 226 thou/uL (130-400); Red Blood Cell (RBC) Count 3.08 mill/uL (4.20-5.40); White Blood Cell (WBC) Count 15.8 thou/uL (4.8-10.8)
[2021-04-26 06:23] LABS: ALT (SGPT) 11 U/L (8-55); AST (SGOT) 22 U/L (5-34); Albumin 3.3 g/dL (3.4-4.8); Alkaline Phosphatase 51 U/L (40-110); Anion Gap 16 mmol/L (10-20); BUN (Urea Nitrogen) 23 mg/dL (9.8-20.1); Bilirubin, Total 0.3 mg/dL (0.2-1.2); Calc. Creatinine Clearance 0 mL/min (70-130); Calcium 8.8 mg/dL (7.8-10.44); Carbon Dioxide 18 mmol/L (23-31); Chloride 104 mmol/L (98-107); Globulin 2.6 g/dL (2.4-3.5); Glucose 92 mg/dL (83-110); Potassium 4.1 mmol/L (3.5-5.1); Protein, Total 5.9 g/dL (5.8-8.1); Sodium 134 mmol/L (136-145)
[2021-04-26] MEDS: Acetaminophen 325 MG TAB PO PRN ×2 (08:19→20:37)
[2021-04-26] MEDS ORDERED: traMADol HCl 50 MG TAB PO PRN (10:37)
[2021-04-26] MEDS ORDERED: Furosemide 20 MG TAB PO PRN ×2 (10:42→10:58)
[2021-04-26] MEDS: HYDROcodone/Acetaminophen 5/325 mg Tablet PO PRN ×2 (14:30→20:20)
[2021-04-26] MEDS: Cyclobenzaprine 10 MG TAB PO PRN ×2 (14:30→20:19)
[2021-04-26] MEDS: Carvedilol 6.25 MG TAB PO SCH (17:35)
[2021-04-26] MEDS: carBAMazepine 200 MG TAB PO SCH (20:20)
[2021-04-26] MEDS: Melatonin 3 MG TAB PO PRN (20:20)
[2021-04-26] MEDS: ALPRAZolam 0.25 MG TAB PO PRN (20:23)
[2021-04-26] MEDS: Senokot S 8.6-50 MG TAB PO PRN (20:37)
[2021-04-26] MEDS ORDERED: CARVEDILOL PO SCH (21:00)
[2021-04-27 06:50] LABS: #Eosinphils 0.1 thou/uL (0.0-0.7); #Lymphocytes 0.6 thou/uL (1.20-3.40); #Monocytes 0.9 thou/uL (0.11-0.59); #Neutrophils 7.2 thou/uL (1.40-6.50); %Basophils 0.1 % (0.0-1.0); %Eosinophils 1.1 % (0.0-10.0); %Lymphocytes 6.8 % (21.0-51.0); %Monocytes 9.7 % (0.0-10.0); %Neutrophils 82.3 % (42.0-75.0); Hemoglobin 8.8 g/dL (12.0-16.0); Mean Corpuscular HGB CONC 32.9 g/dL (32.0-36.0); Mean Corpuscular Volume 91.3 fL (78.0-98.0); Mean Platelet Volume 7.8 fL (7.4-10.4); Platelet Count 195 thou/uL (130-400); RBC Distribution Width 12.7 % (11.5-14.5); Red Blood Cell (RBC) Count 2.93 mill/uL (4.20-5.40); White Blood Cell (WBC) Count 8.8 thou/uL (4.8-10.8)
[2021-04-27 07:11] LABS: Anion Gap 11 mmol/L (10-20); BUN (Urea Nitrogen) 31 mg/dL (9.8-20.1); Calc. Creatinine Clearance 0 mL/min (70-130); Calcium 8.9 mg/dL (7.8-10.44); Carbon Dioxide 23 mmol/L (23-31); Chloride 103 mmol/L (98-107); Glucose 101 mg/dL (83-110); Potassium 4.2 mmol/L (3.5-5.1); Sodium 133 mmol/L (136-145)
[2021-04-27] MEDS: HYDROcodone/Acetaminophen 5/325 mg Tablet PO PRN (07:49)
[2021-04-27] MEDS: Carvedilol 6.25 MG TAB PO SCH ×2 (07:58→17:18)
[2021-04-27] MEDS: Amlodipine 5 MG TAB PO SCH (08:11)
[2021-04-27] MEDS: Clopidogrel Bisulfate 75 MG TAB PO SCH (08:17)
[2021-04-27] MEDS: Cyclobenzaprine 10 MG TAB PO PRN ×2 (08:17→21:15)
[2021-04-27] MEDS: Aspirin Chewable 81 MG TAB PO SCH (08:17)
[2021-04-27] MEDS ORDERED: Dexamethasone 4 mg/ml Vial SLOW IVP SCH (11:15)
[2021-04-27] MEDS ORDERED: Dexamethasone 10 MG in Sodium Chloride 0.9% 50 ML IVPB SCH (11:15)
[2021-04-27] MEDS ORDERED: Lidocaine 5% Patch TD SCH (12:00)
[2021-04-27] MEDS: Sodium Chloride 0.9% 1,000 ML IV SCH (12:15)
[2021-04-27] MEDS: Morphine 4 MG/ML VIAL SLOW IVP PRN ×2 (12:16→21:15)
[2021-04-27] MEDS: Polyethylene Glycol 3350 17 GM Packet PO PRN (12:35)
[2021-04-27] MEDS ORDERED: Dexamethasone 4 MG in Sodium Chloride 0.9% 50 ML IVPB SCH (14:00)
[2021-04-27] MEDS: Dexamethasone 4 mg/ml Vial SLOW IVP SCH ×2 (14:36→21:15)
[2021-04-27] MEDS: oxyCODONE/Acetaminophen 5 mg/325 mg Tablet PO PRN (18:05)
[2021-04-27] MEDS: Senokot S 8.6-50 MG TAB PO PRN (21:14)
[2021-04-27] MEDS: Melatonin 3 MG TAB PO PRN (21:14)
[2021-04-27] MEDS: carBAMazepine 200 MG TAB PO SCH (21:15)
[2021-04-27] MEDS: ALPRAZolam 0.25 MG TAB PO PRN (21:15)
[2021-04-27] MEDS ORDERED: Calcium Carbonate 500 MG ChewTAB PO SCH (22:21)
[2021-04-27] MEDS ORDERED: Transdermal Patch Removal TOP SCH (23:59)
[2021-04-28] MEDS: Dexamethasone 4 mg/ml Vial SLOW IVP SCH ×3 (05:18→20:34)
[2021-04-28 06:34] LABS: #Lymphocytes 0.4 thou/uL (1.20-3.40); #Monocytes 0.5 thou/uL (0.11-0.59); #Neutrophils 5.3 thou/uL (1.40-6.50); %Eosinophils 0.1 % (0.0-10.0); %Lymphocytes 6.5 % (21.0-51.0); %Monocytes 7.9 % (0.0-10.0); %Neutrophils 85.5 % (42.0-75.0); Hemoglobin 8.8 g/dL (12.0-16.0); Mean Corpuscular HGB CONC 32.4 g/dL (32.0-36.0); Mean Corpuscular Hemoglobin 29.5 pg (27.0-31.0); Mean Platelet Volume 7.9 fL (7.4-10.4); Platelet Count 220 thou/uL (130-400); RBC Distribution Width 12.7 % (11.5-14.5); Red Blood Cell (RBC) Count 2.98 mill/uL (4.20-5.40); White Blood Cell (WBC) Count 6.2 thou/uL (4.8-10.8)
[2021-04-28 06:52] LABS: Anion Gap 10 mmol/L (10-20); BUN (Urea Nitrogen) 28 mg/dL (9.8-20.1); Calc. Creatinine Clearance 0 mL/min (70-130); Calcium 8.9 mg/dL (7.8-10.44); Carbon Dioxide 26 mmol/L (23-31); Chloride 101 mmol/L (98-107); Glucose 163 mg/dL (83-110); Sodium 132 mmol/L (136-145)
[2021-04-28] MEDS: Carvedilol 6.25 MG TAB PO SCH (08:41)
[2021-04-28] MEDS: oxyCODONE/Acetaminophen 5 mg/325 mg Tablet PO PRN ×2 (09:03→13:57)
[2021-04-28] MEDS: Amlodipine 5 MG TAB PO SCH (09:04)
[2021-04-28] MEDS: Aspirin Chewable 81 MG TAB PO SCH (09:04)
[2021-04-28] MEDS: Clopidogrel Bisulfate 75 MG TAB PO SCH (09:04)
[2021-04-28] MEDS: Sodium Chloride 0.9% 1,000 ML IV SCH (09:05)
[2021-04-28] MEDS: Metoprolol Tartrate 25 MG TAB PO SCH (10:23)
[2021-04-28] MEDS: Bisacodyl 5 MG TAB PO PRN (10:24)
[2021-04-28] MEDS: Morphine 4 MG/ML VIAL SLOW IVP PRN ×2 (10:31→19:21)
[2021-04-28] MEDS: Acetaminophen 325 MG TAB PO PRN (16:15)
[2021-04-28] MEDS ORDERED: Calcium Carbonate 500 MG ChewTAB PO SCH (20:17)
[2021-04-28] MEDS: carBAMazepine 200 MG TAB PO SCH (20:38)
[2021-04-28] MEDS ORDERED: carBAMazepine 100 mg Chewable Tablet PO SCH (21:00)
[2021-04-28] MEDS: ALPRAZolam 0.25 MG TAB PO PRN (22:38)
[2021-04-29] MEDS: Sodium Chloride 0.9% 1,000 ML IV SCH ×2 (01:35→23:03)
[2021-04-29] MEDS: Dexamethasone 4 mg/ml Vial SLOW IVP SCH ×3 (06:00→20:40)
[2021-04-29 07:21] LABS: #Lymphocytes 0.8 thou/uL (1.20-3.40); #Monocytes 0.7 thou/uL (0.11-0.59); #Neutrophils 6.7 thou/uL (1.40-6.50); %Basophils 0.1 % (0.0-1.0); %Eosinophils 0.1 % (0.0-10.0); %Lymphocytes 9.3 % (21.0-51.0); %Monocytes 8.8 % (0.0-10.0); %Neutrophils 81.7 % (42.0-75.0); Hemoglobin 8.8 g/dL (12.0-16.0); Mean Corpuscular HGB CONC 33.4 g/dL (32.0-36.0); Mean Corpuscular Volume 89.9 fL (78.0-98.0); Mean Platelet Volume 7.8 fL (7.4-10.4); Platelet Count 240 thou/uL (130-400); RBC Distribution Width 12.5 % (11.5-14.5); Red Blood Cell (RBC) Count 2.94 mill/uL (4.20-5.40); White Blood Cell (WBC) Count 8.2 thou/uL (4.8-10.8)
[2021-04-29 07:41] LABS: Anion Gap 12 mmol/L (10-20); BUN (Urea Nitrogen) 26 mg/dL (9.8-20.1); Calc. Creatinine Clearance 0 mL/min (70-130); Carbon Dioxide 24 mmol/L (23-31); Chloride 100 mmol/L (98-107); Glucose 115 mg/dL (83-110); Potassium 5.2 mmol/L (3.5-5.1); Sodium 131 mmol/L (136-145)
[2021-04-29] MEDS: Cyclobenzaprine 10 MG TAB PO PRN (08:20)
[2021-04-29] MEDS: Aspirin Chewable 81 MG TAB PO SCH (08:20)
[2021-04-29] MEDS: Clopidogrel Bisulfate 75 MG TAB PO SCH (08:20)
[2021-04-29] MEDS: Metoprolol Tartrate 25 MG TAB PO SCH (08:20)
[2021-04-29] MEDS: oxyCODONE/Acetaminophen 5 mg/325 mg Tablet PO PRN ×3 (08:21→18:29)
[2021-04-29] MEDS: Amlodipine 5 MG TAB PO SCH (08:22)
[2021-04-29] MEDS: Bisacodyl 5 MG TAB PO PRN (08:22)
[2021-04-29] MEDS: Polyethylene Glycol 3350 17 GM Packet PO PRN (08:23)
[2021-04-29] MEDS ORDERED: Dexamethasone 20 MG/5 ML VIAL ONE (11:50)
[2021-04-29] MEDS ORDERED: Bupivacaine 0.25% 10 ML VIAL ONE (11:50)
[2021-04-29] MEDS ORDERED: Lidocaine 2% PF 5 ML VIAL ONE (11:50)
[2021-04-29] MEDS ORDERED: Iopamidol-M 300 61% 15 ML VIAL ONE (11:50)
[2021-04-29] MEDS: Morphine 4 MG/ML VIAL SLOW IVP PRN ×2 (17:02→21:37)
[2021-04-29] MEDS: carBAMazepine 200 MG TAB PO SCH (20:38)
[2021-04-29] MEDS: ALPRAZolam 0.25 MG TAB PO PRN (23:00)
[2021-04-30] MEDS ORDERED: hydrALAZINE 20 MG/ML VIAL SLOW IVP PRN (05:16)
[2021-04-30] MEDS: Dexamethasone 4 mg/ml Vial SLOW IVP SCH (05:42)
[2021-04-30 07:28] LABS: #Lymphocytes 0.9 thou/uL (1.20-3.40); #Monocytes 0.7 thou/uL (0.11-0.59); %Eosinophils 0.2 % (0.0-10.0); %Lymphocytes 11.3 % (21.0-51.0); %Monocytes 9.6 % (0.0-10.0); %Neutrophils 78.9 % (42.0-75.0); Hemoglobin 9.4 g/dL (12.0-16.0); Mean Corpuscular HGB CONC 33.1 g/dL (32.0-36.0); Mean Corpuscular Hemoglobin 29.7 pg (27.0-31.0); Mean Corpuscular Volume 89.8 fL (78.0-98.0); Mean Platelet Volume 7.9 fL (7.4-10.4); Platelet Count 269 thou/uL (130-400); RBC Distribution Width 12.9 % (11.5-14.5); Red Blood Cell (RBC) Count 3.17 mill/uL (4.20-5.40); White Blood Cell (WBC) Count 7.7 thou/uL (4.8-10.8)
[2021-04-30 07:43] LABS: Anion Gap 12 mmol/L (10-20); BUN (Urea Nitrogen) 27 mg/dL (9.8-20.1); Calc. Creatinine Clearance 0 mL/min (70-130); Calcium 9.3 mg/dL (7.8-10.44); Carbon Dioxide 23 mmol/L (23-31); Chloride 101 mmol/L (98-107); Glucose 109 mg/dL (83-110); Potassium 4.6 mmol/L (3.5-5.1); Sodium 131 mmol/L (136-145)
[2021-04-30] MEDS: Metoprolol Tartrate 25 MG TAB PO SCH (08:23)
[2021-04-30] MEDS: Amlodipine 5 MG TAB PO SCH (08:23)
[2021-04-30] MEDS: Clopidogrel Bisulfate 75 MG TAB PO SCH (08:23)
[2021-04-30] MEDS: Aspirin Chewable 81 MG TAB PO SCH (08:23)
[2021-04-30] MEDS: Bisacodyl 5 MG TAB PO PRN (08:24)
[2021-04-30] MEDS: Polyethylene Glycol 3350 17 GM Packet PO PRN ×2 (08:24→11:00)
[2021-04-30] MEDS ORDERED: Bisacodyl 10 MG SUPP PR SCH (10:15)
[2021-04-30] MEDS: oxyCODONE/Acetaminophen 5 mg/325 mg Tablet PO PRN ×2 (11:35→23:43)
[2021-04-30] MEDS: Morphine 4 MG/ML VIAL SLOW IVP PRN ×2 (15:08→21:22)
[2021-04-30] MEDS ORDERED: Non-Formulary Item 1 EACH (Sacubitril/Valsartan [Entresto 97 Mg-103 Mg Tablet] 1 EACH Tab PO SCH (21:00)
[2021-04-30] MEDS ORDERED: Rosuvastatin 10 MG TAB PO SCH (21:00)
[2021-04-30] MEDS: carBAMazepine 200 MG TAB PO SCH (21:29)
[2021-04-30] MEDS: Sacubitril 49 MG/Valsartan 51 MG TABLET PO SCH (21:30)
[2021-04-30] MEDS: Cyclobenzaprine 10 MG TAB PO PRN (23:43)
[2021-05-01] MEDS ORDERED: Sodium Chloride 0.9% 500 ML IV SCH (05:00)
[2021-05-01 06:33] LABS: Mean Corpuscular Hemoglobin 29.7 pg (27.0-31.0); Mean Corpuscular Volume 89.9 fL (78.0-98.0); Mean Platelet Volume 7.6 fL (7.4-10.4); Platelet Count 307 thou/uL (130-400); Red Blood Cell (RBC) Count 3.36 mill/uL (4.20-5.40); White Blood Cell (WBC) Count 9.1 thou/uL (4.8-10.8)
[2021-05-01 06:53] LABS: Anion Gap 10 mmol/L (10-20); BUN (Urea Nitrogen) 30 mg/dL (9.8-20.1); Calc. Creatinine Clearance 0 mL/min (70-130); Calcium 9.4 mg/dL (7.8-10.44); Carbon Dioxide 26 mmol/L (23-31); Chloride 101 mmol/L (98-107); Glucose 93 mg/dL (83-110); Potassium 4.7 mmol/L (3.5-5.1); Sodium 132 mmol/L (136-145)
[2021-05-01 07:37] LABS: Band 1 % (5-11); Lymphocytes 18 % (21-51); MDiff Complete? YES; Monocytes 7 % (0-10); Neutrophil 73 % (42-75); Platelet Morphology Comment Appears Adequate; RBC Morphology Normal; Reactive Lymphocytes 1 % (0-10)
[2021-05-01 08:03] VITALS: TEMP 97.8
[2021-05-01] MEDS: Clopidogrel Bisulfate 75 MG TAB PO SCH (08:30)
[2021-05-01] MEDS: Acetaminophen 325 MG TAB PO PRN (08:31)
[2021-05-01] MEDS: Amlodipine 5 MG TAB PO SCH (08:31)
[2021-05-01] MEDS: Aspirin Chewable 81 MG TAB PO SCH (08:31)
[2021-05-01] MEDS: Sacubitril 49 MG/Valsartan 51 MG TABLET PO SCH (08:33)
[2021-05-01] MEDS: Metoprolol Tartrate 25 MG TAB PO SCH (08:33)
[2021-05-01] MEDS ORDERED: predniSONE 5 MG TAB PO SCH (09:00)
[2021-05-01] MEDS: Morphine 4 MG/ML VIAL SLOW IVP PRN (10:56)
[2021-05-01] MEDS: oxyCODONE/Acetaminophen 5 mg/325 mg Tablet PO PRN (15:43)
[2021-05-01 15:52] VITALS: BP 115/54
== END 2021-05-01 16:45 | DRG 552 ==
LOC: ERS 10:05 → T4-A 17:26 → OBSVTOIN 04-26 11:20
PROVIDERS: ADMIT Internal Medicine; ATTEND Internal Medicine
PROC: 3E0R33Z Introduction of Anti-inflammatory into Spinal Canal, Percutaneous Approach (ICD-10-PCS; principal; 2021-04-29)
PROC: 3E0R3BZ Introduction of Anesthetic Agent into Spinal Canal, Percutaneous Approach (ICD-10-PCS; 2021-04-29)
DX: M48.061 Spinal stenosis, lumbar region without neurogenic claudication (principal); N39.0 Urinary tract infection, site not specified; N17.9 Acute kidney failure, unspecified; G89.29 Other chronic pain; I25.10 Atherosclerotic heart disease of native coronary artery without angina pectoris; M06.9 Rheumatoid arthritis, unspecified; M19.90 Unspecified osteoarthritis, unspecified site; I10 Essential (primary) hypertension; M54.16 Radiculopathy, lumbar region; E78.5 Hyperlipidemia, unspecified; D72.829 Elevated white blood cell count, unspecified; R26.89 Other abnormalities of gait and mobility; E78.00 Pure hypercholesterolemia, unspecified; Z88.5 Allergy status to narcotic agent; Z88.0 Allergy status to penicillin; Z79.82 Long term (current) use of aspirin; Z79.899 Other long term (current) drug therapy; Z95.5 Presence of coronary angioplasty implant and graft; Z90.710 Acquired absence of both cervix and uterus; Z95.1 Presence of aortocoronary bypass graft
CPT/HCPCS: 36415; 72146; 72148; 74177; 80048; 80053; 81003; 83605; 83690; 85025; 87040; 87086; G0378; J0360; J0696; J1100; J1885; J2001; J2270; J2405; J7030; J7050; J7512; Q9967; S0020